=== PATIENT | female | born 1965 | race Two or more races ===

== ENCOUNTER 2022-08-03 15:01 | Outpatient (CLI) | payer OTHER | END 2022-08-03 15:14 | disposition home or self-care (01) | LOC: MAMO-SONO 15:01 | PROVIDERS: ATTEND Surgery | DX: N60.22 Fibroadenosis of left breast (principal); N60.12 Diffuse cystic mastopathy of left breast; D24.2 Benign neoplasm of left breast; Z85.3 Personal history of malignant neoplasm of breast ==